=== PATIENT | male | born 1985 | race Caucasian/White ===

== ENCOUNTER 2017-07-09 14:57 | Emergency (ER) | payer MEDICAID ==
[~2017-07-09] VITALS: Ht 175.3 cm; Wt 117.7 kg
[2017-07-09 16:16] VITALS: BP 141/89
== END 2017-07-09 17:56 | disposition home or self-care (01) ==
LOC: EMS 14:58
DX: S29.011A Strain of muscle and tendon of front wall of thorax, initial encounter (principal); X58.XXXA Exposure to other specified factors, initial encounter; Y93.89 Activity, other specified; Y92.89 Other specified places as the place of occurrence of the external cause; Y99.8 Other external cause status
CPT/HCPCS: 71046; 99284